=== PATIENT | female | born 1975 | race Caucasian/White ===

== ENCOUNTER 2020-08-15 08:05 | Outpatient (CLI) | payer OTHER, SELFPAY ==
--- NOTE | 2020-08-15 08:00 | ECG_ITS ---
Measurements Intervals Gillespie Rate: 62 P: 31 MS: 162 QRS: -18 QRSD: 93 T: 44 QT: 388 QTc: 394 Interpretive Statements SINUS RHYTHM VOLTAGE CRITERIA FOR LVH POOR R WAVE PROGRESSION, ANTERIOR LEADS BASELINE ARTIFACT- I, II, III, AVR, AVL, AVF BORDERLINE ECG Electronically Signed On 08-15-2020 8:49:04 CDT by Srinath Richards D.O.
[2020-08-15 08:39] LABS: Hematocrit 33.8 % (37.0-47.0); Hemoglobin 9.7 g/dL (12.0-15.0)
== END 2020-08-15 08:06 | disposition home or self-care (01) ==
LOC: ANHSURGERY 08:07
PROVIDERS: PCP Family Medicine; Visit Provider Obstetrics & Gynecology
DX: Z01.818 Encounter for other preprocedural examination (principal); N92.0 Excessive and frequent menstruation with regular cycle; F17.200 Nicotine dependence, unspecified, uncomplicated
CPT/HCPCS: 36415; 85014; 85018; 93005

== ENCOUNTER → 2020-08-16 04:28 | Outpatient (CLI) | payer OTHER, SELFPAY ==
[2020-08-16 19:03] LABS: SARS-CoV-2 RNA PCR Negative
== END ==
PROVIDERS: PCP Family Medicine; Visit Provider Obstetrics & Gynecology
DX: Z01.812 Encounter for preprocedural laboratory examination (principal); Z20.822 Contact with and (suspected) exposure to COVID-19
CPT/HCPCS: C9803; U0003; U0005

== ENCOUNTER 2020-08-19 01:22 | Day surgery (SDC) | payer OTHER, SELFPAY ==
[2020-08-05 11:53] VITALS: BMI 39.3
--- NOTE | 2020-08-16 09:41 | PM.IMHP ---
H&P: HPI History of Present Illness Date/Time: 08/16/20 09:41 for has a 45-year-old 4 para 4 who is admitted for hysteroscopy dilatation curettage and endometrial ablation. She complains of heavy bleeding. This has been going on for years. She opts for the ablation. Risks and benefits reviewed for Chief Complaint: heavy menstrual bleeding refractory to medical therapy Review of Systems Review of Systems: All systems reviewed & are unremarkable except as noted in HPI and below PMFSH Family History Family History Father Hypertension Family history of diabetes mellitus in first degree relative Social History Social History Smoking packs per day: 1 Smoking cigarettes per day: 20.0 Years smoked: 20 Smoking pack-years: 20.00 Smoking status: Current every day smoker Tobacco type: e-cigarettes/vaping Second hand tobacco smoke exposure: Yes Smoking end date: 05/13/11 Additional smoking assessment comments: SMOKED CIGARETTES 20 YEARS, NOW VAPING X 2 YEARS Alcohol intake: current Substance use: current Substance use type: marijuana Other substance usage details: 1/WEEK Spiritual care concerns: No Meds Home Medications and Allergies Home Medications Medication Instructions Recorded Confirmed Type citalopram [Celexa] 20 mg PO DAILY 08/05/20 08/05/20 History omeprazole [Prilosec] 20 mg PO DAILY 08/05/20 08/05/20 History Allergies Allergy/AdvReac Type Severity Reaction Status Date / Time No Known Allergies Allergy Unknown Unverified 08/05/20 11:52 Exam Const: General: no acute distress Eyes: General: appearance normal, both eyes and all related structures Neck: Neck: supple and no JVD Thyroid: thyroid normal Resp: Effort & Inspection: normal respiratory effort Auscultation: clear to auscultation bilaterally Cardio: Rate: regular rate Rhythm: regular rhythm GI: Inspection: non-distended GI Palp: Yes Soft to palpation, No Tenderness to palpation present (GI) and No Guarding due to palpation present (GI) Auscultation: normal bowel sounds : General: Yes bladder normal to palpation External Female Exam: normal external appearance Speculum Exam - Vagina: normal vaginal discharge and No vaginal bleeding Speculum Exam - Cervix: nontender Bimanual exam- vagina & uterus: bladder normal to palpation and No Cervical tenderness present OB/external & speculum: No vaginal bleeding Skin: General skin exam: no rashes or lesions noted Extrem: General: normal to inspection and no edema Psych: Mental Status: mental status grossly normal Affect: normal affect Assessment and Plan Additional Plan impression: Bleeding refractory to medical therapy Plan: Hysteroscopy / dilatation curettage/ endometrial ablation
--- NOTE | 2020-08-19 06:46 | WPDHPUPDATE1 ---
History and Physical Update Update Date/Time: 08/19/20 06:46 History and Physical has been reviewed, including an updated exam of the patient. There are NO changes in the patient's condition. Risks, benefits, and alternatives have been discussed and questions answered. Patient agrees to proceed with procedure.
[2020-08-19 12:40] VITALS: BP 152/78; PULSE 70; RESP 20; TEMP 36.6; O2SAT 100
--- NOTE | 2020-08-19 12:59 | WPDANESEPPF ---
Anes - Initial Pre Proc Eval Procedure: Operation Date: 08/19/20 14:30 Proposed Procedures p Hysteroscopy Dilation and Curettage With Luanne - Oseas Low MD Date/Time: 08/19/20 12:59 Surgeon: Oseas Low MD Pre Op Diagnosis: Heavy Bleeding Patient Data Age: 45 Gender: F Height: 5 ft 2 in Weight: 97.5 kg Allergies Allergy/AdvReac Type Severity Reaction Status Date / Time No Known Allergies Allergy Unknown Unverified 08/05/20 11:52 Home Medications Medication Instructions Recorded Confirmed Type citalopram [Celexa] 20 mg PO DAILY 08/05/20 08/05/20 History omeprazole [Prilosec] 20 mg PO DAILY 08/05/20 08/05/20 History hydrocodone-acetaminophen 1 tablet PO Q6H PRN #14 tablet 08/19/20 Rx Patient hx anesthesia problems: none Family hx anesthesia problems: none PMFSH Past Medical History Medical History (Updated 08/19/20 @ 12:59 by Oseas Borjas MD) Obesity Family History Family History Father Hypertension Family history of diabetes mellitus in first degree relative Social History Social History Smoking packs per day: 1 Smoking cigarettes per day: 20.0 Years smoked: 20 Smoking pack-years: 20.00 Smoking status: Current every day smoker Tobacco type: e-cigarettes/vaping Second hand tobacco smoke exposure: Yes Smoking end date: 05/13/11 Additional smoking assessment comments: SMOKED CIGARETTES 20 YEARS, NOW VAPING X 2 YEARS Alcohol intake: current Alcohol use details: 6 DRINKS/MONTH Substance use: current Substance use type: marijuana Other substance usage details: 1/WEEK Living arrangements: with family Spiritual care concerns: No Anes - Eval Final PreProcedure Day of Procedure 08/19/20 12:59 Patient weight: obese Heart: regular rate and rhythm Lungs: clear to auscultation Airway: Mallampati scale class II Last oral intake: >/= 8 hours ASA classification: II Emergent: no Anesthetic plan: proceed Anesthesia type and monitoring: general GIVS and standard monitoring Informed Consent: The patient's anesthetic plan and its attendant risks and benefits were discussed with the patient/family/POA. Questions were solicited and answers provided to the satisfaction of the patient/family/POA.
[2020-08-19] MEDS: ACETAMINOPHEN 500 MG TABLET 1000 MG PO (13:07)
[2020-08-19] MEDS: LACTATED RINGERS 1,000 ML 30 ML IV CONT (13:15)
--- NOTE | 2020-08-19 14:27 | PM.PROC ---
Procedure Note - Detailed Date of procedure: 08/19/20 Pre-op diagnosis: Heavy Bleeding Surgeon: Oseas Low MD Postop diagnosis: Heavy bleeding Procedure: Hysteroscopy/ dilatation curettage/ endometrial ablation Anesthesia: IV sedation and local Complications: None Findings: Uterus sounded to9.5cm. Thick endometrial tissue. Description procedure: The patient was prepped and draped in the normal sterile fashion placed in the dorsal lithotomy position. Under excellent IV sedation a weighted speculum placed in posterior fornix of vagina. Anterior lip of the cervix grasped with a single-tooth tenaculum and 2.5cc of 1% xylocaine anesthesia placed at 2:48 a.m. and 10:00 a.m. respectively the cervix. Uterus sounded 9 a 0.5cm. Serial dilatation with dilated was undertaken. The 5mm visualizing hysteroscope was inserted using normal saline as visualizing medium. Thick endometrial tissue could be seen in each fallopian tube os but no abnormality seen. Uterus was scraped over the entire 360? until a good grating sound was heard. When no further tissue could be removed the instruments removed. The Sofiya ablated instrument was placed in the uterus and burned for 120seconds. The instrument removed. Blood loss estimated at5cc. All sponge, needle, instrument counts were correct. There were no immediate complications
[2020-08-19 14:28] VITALS: BP 140/69; PULSE 80; RESP 15; O2SAT 99
[2020-08-19 14:50] VITALS: BP 157/79; PULSE 59; RESP 16
[2020-08-19 15:20] VITALS: BP 170/90; PULSE 50; RESP 16
== END 2020-08-19 15:22 | disposition home or self-care (01) ==
PROVIDERS: PCP Family Medicine; Visit Provider Obstetrics & Gynecology
PROC: 0U5B8ZZ Destruction of Endometrium, Via Natural or Artificial Opening Endoscopic (ICD-10-PCS; CPT 58563; principal; 2020-08-19 14:30)
DX: N92.4 Excessive bleeding in the premenopausal period (principal); N85.8 Other specified noninflammatory disorders of uterus; F12.90 Cannabis use, unspecified, uncomplicated; E66.9 Obesity, unspecified; Z68.38 Body mass index [BMI] 38.0-38.9, adult; F17.290 Nicotine dependence, other tobacco product, uncomplicated
CPT/HCPCS: 58563; 36415; 85014; 85018; 88305; 93005; A9270; C9803; J2250; J2704; J3010; J7030; J7120; U0003; U0005

== ENCOUNTER → 2020-11-15 11:32 | Outpatient (CLI) | payer OTHER, SELFPAY ==
--- NOTE | ~2020-11-15 | MM_ITS ---
EXAMINATION: MM screening [facility] w mariely HISTORY: Screening mammogram TECHNIQUE: Craniocaudal and mediolateral oblique 3-D tomosynthesis images were obtained and synthetic 2-D images were generated. CAD analysis was submitted and interpreted. COMPARISON: 01/10/2017 BREAST PARENCHYMAL COMPOSITION: The breasts are almost entirely fatty. FINDINGS: There is no evidence of suspicious mass, calcification, or architectural distortion to sugg est malignancy in either breast. There has been no suspicious interval change. IMPRESSION: 1. No mammographic evidence of malignancy. 2. Recommend routine screening mammography in one year. BI-RADS Category 1: Negative Reviewed, dictated and finalized at location A.
== END ==
PROVIDERS: Visit Provider Obstetrics & Gynecology
DX: Z12.31 Encounter for screening mammogram for malignant neoplasm of breast (principal)
CPT/HCPCS: 77063; 77067

== ENCOUNTER 2022-01-30 09:17 | Outpatient (CLI) | payer OTHER, SELFPAY ==
[2022-01-30 09:33] LABS: Hematocrit 42.1 % (37.0-47.0); Mean Corpuscular HGB Conc 33.3 g/dl (32-36); Mean Corpuscular Volume 93.3 fl (80-100); Mean Platelet Volume 10.9 fl (7.4-10.4); Platelet Count Result 206 k/mm3 (150-375); Red Blood Count 4.51 M/mm3 (4.2-5.4); Red Cell Distribution Width 12.7 % (11.5-14.5); White Blood Count 5.7 K/mm3 (4.5-10.0)
[2022-01-30 09:33] LABS: Appearance Urine Clear (Clear); Bilirubin Urine Negative (Negative); Blood Urine Negative (Negative); Color Urine Yellow (Yellow); Glucose Urine UA Negative (Negative); Ketones Urine Negative (Negative); Leukocyte Esterase Ur Negative LEU/UL (NEGATIVE); Nitrate Urine Negative (Negative); Protein Urine Negative (Negative); Specific Grav Ur >= 1.030 (1.001-1.035); Urobilinogen Urine 0.2 mg/dL (<2.0); pH Urine 5.5 (5.0-9.0)
[2022-01-30 09:39] LABS: Bacteria Urine 2+ /hpf; Mucus Urine Few /lpf; Squamous Epithelial Cell Urine Moderate /hpf (Few)
[2022-01-30 09:51] LABS: Alanine Aminotransferase 14 U/L (6-35); Albumin Level 4.1 g/dL (3.5-5.1); Alkaline Phosphatase 45 U/L (38-126); Anion Gap 9 mmol/L (8-16); Aspartate Amino Transferase 22 U/L (14-36); Bilirubin,Total 0.9 mg/dL (0.2-1.3); Blood Urea Nitrogen 10 mg/dL (7-17); Carbon Dioxide 23 mmol/L (22-30); Chloride 107 mmol/L (98-107); Cholesterol 149 mg/dL (0-200); Estimated Glomerular Filt Rate > 60; Glucose 98 mg/dL (65-110); HDL Direct 42 mg/dL; Potassium 3.9 mmol/L (3.4-5.0); Sodium 139 mmol/L (137-145); Triglycerides 70 mg/dL (<150)
[2022-01-30 09:53] LABS: Add Urine Microscopic? YES
[2022-01-30 10:02] LABS: LDL Cholesterol Direct 87 mg/dL
== END 2022-01-30 09:18 | disposition home or self-care (01) ==
LOC: ANHLAB 09:19
PROVIDERS: PCP Family Medicine; Visit Provider Family Medicine
DX: E78.5 Hyperlipidemia, unspecified (principal); I10 Essential (primary) hypertension; Z00.00 Encounter for general adult medical examination without abnormal findings
CPT/HCPCS: 36415; 80053; 80061; 81001; 84443; 85027

== ENCOUNTER 2022-06-28 10:16 | Outpatient (CLI) | payer OTHER, SELFPAY ==
[2022-06-28 11:00] LABS: Alanine Aminotransferase 17 U/L (6-35); Albumin Level 3.6 g/dL (3.5-5.1); Alkaline Phosphatase 48 U/L (38-126); Anion Gap 6 mmol/L (8-16); Aspartate Amino Transferase 23 U/L (14-36); Bilirubin,Total 0.4 mg/dL (0.2-1.3); Blood Urea Nitrogen 8 mg/dL (7-17); Calcium 8.7 mg/dL (8.4-10.2); Carbon Dioxide 28 mmol/L (22-30); Chloride 106 mmol/L (98-107); Estimated Glomerular Filt Rate > 60; Glucose 82 mg/dL (65-110); Potassium 3.6 mmol/L (3.4-5.0); Sodium 140 mmol/L (137-145)
== END 2022-06-28 10:17 | disposition home or self-care (01) ==
PROVIDERS: PCP Family Medicine; Visit Provider Family Medicine
DX: I10 Essential (primary) hypertension (principal)
CPT/HCPCS: 36415; 80053

== ENCOUNTER 2023-02-20 14:49 | Outpatient (CLI) | payer OTHER, SELFPAY ==
[2023-02-20 15:19] LABS: Appearance Urine Clear (Clear); Bilirubin Urine Negative (Negative); Blood Urine Negative (Negative); Color Urine Yellow (Yellow); Glucose Urine UA Negative (Negative); Ketones Urine Negative (Negative); Leukocyte Esterase Ur Negative LEU/UL (NEGATIVE); Nitrate Urine Negative (Negative); Protein Urine Negative (Negative); Specific Grav Ur 1.023 (1.001-1.035); Urobilinogen Urine 0.2 mg/dL (<2.0)
[2023-02-20 15:20] LABS: Hematocrit 40.5 % (37.0-47.0); Hemoglobin 13.4 g/dL (12.0-15.0); Mean Corpuscular HGB Conc 33.1 g/dl (32-36); Mean Corpuscular Volume 93.8 fl (80-100); Mean Platelet Volume 10.6 fl (7.4-10.4); Platelet Count Result 204 k/mm3 (150-375); Red Blood Count 4.32 M/mm3 (4.2-5.4); Red Cell Distribution Width 12.8 % (11.5-14.5); White Blood Count 8.5 K/mm3 (4.5-10.0)
[2023-02-20 15:27] LABS: Add Urine Microscopic? NO
[2023-02-20 15:29] LABS: Alanine Aminotransferase 13 U/L (6-35); Albumin Level 3.9 g/dL (3.5-5.1); Alkaline Phosphatase 49 U/L (38-126); Anion Gap 8 mmol/L (8-16); Aspartate Amino Transferase 21 U/L (14-36); Bilirubin,Total 0.7 mg/dL (0.2-1.3); Blood Urea Nitrogen 11 mg/dL (7-17); Calcium 8.7 mg/dL (8.4-10.2); Carbon Dioxide 21 mmol/L (22-30); Chloride 106 mmol/L (98-107); Cholesterol 155 mg/dL (0-200); Estimated Glomerular Filt Rate > 60; Glucose 106 mg/dL (65-110); HDL Direct 55 mg/dL; Potassium 3.5 mmol/L (3.4-5.0); Sodium 135 mmol/L (137-145); Triglycerides 63 mg/dL (<150)
[2023-02-20 15:42] LABS: LDL Cholesterol Direct 82 mg/dL
== END 2023-02-20 14:50 | disposition home or self-care (01) ==
PROVIDERS: PCP Family Medicine; Visit Provider Family Medicine
DX: Z00.00 Encounter for general adult medical examination without abnormal findings (principal); E78.5 Hyperlipidemia, unspecified; I10 Essential (primary) hypertension
CPT/HCPCS: 36415; 80053; 80061; 81003; 84443; 85027

== ENCOUNTER 2023-09-18 10:39 | Outpatient (CLI) | payer OTHER, SELFPAY ==
[2023-09-18 11:36] LABS: Alanine Aminotransferase 13 U/L (6-35); Albumin Level 4.2 g/dL (3.5-5.1); Alkaline Phosphatase 48 U/L (38-126); Anion Gap 4 mmol/L (4-12); Aspartate Amino Transferase 21 U/L (14-36); Bilirubin,Total 0.6 mg/dL (0.2-1.3); Blood Urea Nitrogen 14 mg/dL (7-17); Calcium 9.3 mg/dL (8.4-10.2); Carbon Dioxide 27 mmol/L (22-30); Chloride 107 mmol/L (98-107); Estimated Glomerular Filt Rate > 60; Glucose 94 mg/dL (65-110); Potassium 3.9 mmol/L (3.4-5.0); Sodium 138 mmol/L (137-145)
== END 2023-09-18 10:40 | disposition home or self-care (01) ==
LOC: ANHLAB 10:41
PROVIDERS: PCP Family Medicine; Visit Provider Family Medicine
DX: I10 Essential (primary) hypertension (principal)
CPT/HCPCS: 36415; 80053

== ENCOUNTER 2024-04-30 13:32 | Outpatient (CLI) | payer OTHER, SELFPAY ==
--- NOTE | ~2024-04-30 | MM_ITS ---
EXAMINATION: MM screening [facility] BI w mariely HISTORY: Screening TECHNIQUE: Craniocaudal and mediolateral oblique 3-D tomosynthesis images were obtained and synthetic 2-D images were generated. CAD analysis was submitted and interpreted. COMPARISON: Comparison to multiple prior studies sequentially, with oldest reviewed study dated 01/10. BREAST PARENCHYMAL COMPOSITION: Not dense: There are scattered areas of fibroglandular density. FINDINGS: There is no evidence of suspicious mass, calcification, or architectural distortion to sugg est malignancy in either breast. There has been no suspicious interval change. IMPRESSION: 1. No mammographic evidence of malignancy. 2. Recommend routine screening mammography in one year. BI-RADS Category 1: Negative Reviewed, dictated and finalized at location B. 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
== END 2024-04-30 13:33 | disposition home or self-care (01) ==
LOC: MICIMG 13:33
PROVIDERS: PCP Family Medicine; Visit Provider Obstetrics & Gynecology
DX: Z12.31 Encounter for screening mammogram for malignant neoplasm of breast (principal)
CPT/HCPCS: 77063; 77067

== ENCOUNTER 2024-09-25 08:35 | Outpatient (CLI) | payer OTHER, SELFPAY ==
--- OUTSIDE RECORDS SUMMARY | 2024-09-25 08:43 | XMS_ITS | Clinical Summary ---
Author Organization [facility] Address [address] [place] [id number] Care Team Providers Care Outside Sales Executive Name Role Phone Asif Mohr MD Primary Care Provider Allergies No known active allergies Medications losartan (COZAAR) 25 mg tablet Take 1 tablet (25 mg total) by mouth daily Active Active Problems No known active problems Social History Tobacco Use Types Packs/Day Years Used Date Smoking Tobacco: Former Cigarettes Tobacco Cessation:Counseling Given: Not Answered Personal Safety Answer Date Recorded Getting School Help Needed Not on file 07/27 Comments Unknown Sex and Gender Information Value Date Recorded Sex Assigned at Not on file 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 Gender Identity Not on file Sexual Orientation Not on file Obstetrics History Last Filed Vital Signs Vital Sign Reading Time Taken Comments Blood Pressure - - Pulse - - Temperature - - Respiratory Rate - - Oxygen Saturation - - Inhaled Oxygen Concentration - - Weight 72.6 kg (160 lb) 12/17/2022 12:45 PM CDT Height 157.5 cm (5' 2 ) 12/17/2022 12:45 PM CDT Body Mass Index 29.26 12/17/2022 12:45 PM CDT Plan of Treatment Health Maintenance Due Date Last Done Comments Breast Cancer Screening-Mammogram 1975 Cervical Cancer Screening 1976 Colon Cancer Screening-Colonoscopy 1976 Depression Screening 1976 Hepatitis C Screening 1976 DTaP/Tdap/Td Vaccine (1 - Tdap) 1987 Hepatitis B Screening 1994 Regular Well Visit/Exam 18-64 1994 Influenza Vaccine (#1) 2024 Pneumococcal vaccine <65 Aged Out No longer eligible based on patient's age to complete this topic Insurance [facility] Care Teams Outside Sales Executive Relationship Specialty Start Date End Date Asif Mohr MD [address] [address] PCP - General Family Medicine 12/17/22
--- OUTSIDE RECORDS SUMMARY | 2024-09-25 08:43 | XMS_ITS | Clinical Summary ---
Author Organization [facility] Care Team Providers Care Pin Sorter And Bagger Name Role Phone Unavailable Primary Care Provider Unavailabl e Social History Tobacco Use Types Packs/Day Years Used Date Smoking Tobacco: Never Assessed Comments Unknown Sex and Gender Information Value Date Recorded Sex Assigned at Not on file Legal Sex Female 7:16 PM CDT Gender Identity Not on file Sexual Orientation Not on file Plan of Treatment Health Maintenance Due Date Last Done Comments Hepatitis C Virus (HCV) Screening 1975 TdaP Immunization 1975 Hepatitis B Immunization (1 of 3 - 19+ 3-dose series) 1995 Pap Smear 1997 Cervical Cancer Screening (CCS) 2006 HPV/Cotest 2006 Discussion re Starting/Frequ ency of Mammograms 2016 Colonoscopy 2021 Colorectal Cancer Screening 2021 Influenza Immunization (#1) 2024 SARS-COV-2 Immunization ( season) 2024 Respiratory Syncytial Virus (RSV) Immunization (Adult) (1 - 1-dose 75+ series) 2051 Meningococcal Immunization (ACWY) Aged Out No longer eligible based on patient's age to complete this topic Pneumococcal Immunization Combined Aged Out No longer eligible based on patient's age to complete this topic Rotavirus Immunization Aged Out No lo nger eligible based on patient's age to complete this topic
--- OUTSIDE RECORDS SUMMARY | 2024-09-25 08:43 | XMS_ITS | Patient Health Record ---
Author Organization [address] [facility] Address [address] [place] [address] Care Team Providers Care Hand Worker Name Role Phone Asif Mohr MD Primary Care Provider Dane Piper Unavailable [phone] Allergies No Known Allergies Reason For Referral No Information Medications Medication SIG (Take, Route, Fr equency, Duration) Notes Start Date End Date Status Valium 10 MG 1 tablet Orally once , prior to surgery for 1 days 02/17/2021 Not-Taking Fluconazole 150 MG 3 tablets all at onc e Orally once a week 02/27/2021 Active Social History Tobacco Use: Social History Observation Description Date Details (start date - stop date) Former Smoker NA - NA Tobacco Use/Smoking Question Answer Notes Are you a former smoker How long has it been since you last smoked? 5-10 years Plan Of Treatment No Information Insurance Providers Payer Name Payer Address Payer Phone Subscriber Number Group Number Insured Name Patient Relationship to Insured Coverage Start Date Coverage End Date [facility] [address] [address] [place] [address] [id number] Smaantha Warren Self - patient is the insured Medical (General) History Surgical History Surgery Date(Month/Year)
--- OUTSIDE RECORDS SUMMARY | 2024-09-25 08:43 | XMS_ITS | Referral Summary ---
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 Gender Identity Not on file Sexual Orientation Not on file Last Filed Vital Signs Vital Sign Reading Time Taken Comments Blood Pressure - - Pulse - - Temperature - - Respiratory Rate - - Oxygen Saturation - - Inhaled Oxygen Concentration - - Weight 72.6 kg (160 lb) 12/17/2022 12:45 PM CDT Height 157.5 cm (5' 2 ) 12/17/2022 12:45 PM CDT Body Mass Index 29.26 12/17/2022 12:45 PM CDT Plan of Treatment Not on file Insurance [facility] CHOICE PLUS CHOICE PLUS Care Teams Mobile Therapist Relationship Specialty Start Date End Date Asif Mohr MD [address] [place] [address] PCP - General Family Medicine 12/17/22
--- OUTSIDE RECORDS SUMMARY | 2024-09-25 08:43 | XMS_ITS | Clinical Summary ---
Author Organization [facility] Address [address] [place] [address] Care Team Providers Care Sanitation Lead Name Role Phone Asif Mohr MD Primary Care Provider [phone] [facility],non-owned Affiliates and Associated Physician Practices is amultiple site organization consisting of ambulatory clinics and hospital sitesin [place], [place], [place] and [place]. This disclosure is being madepursuant to the Care Everywhere program and may not contain all information available regarding this patient. Last updated 18.[facility] Allergies No known active allergies Medications * Be aware that medications may not be up to date on this document. Alwaysverify current medications with the patient. Citalopram Hydrobromide (CITALOPRAM PO) Acti ve benzonatate (TESSALON) 200 MG capsule Take 1 capsule by mouth 3 times daily as needed for Cough 30 capsule 7 Active Family History Medical History Relation Name Comments Asthma Neg Hx Autoimmune Disease Neg Hx Bipolar Disorder Neg Hx Cancer - Breast Neg Hx Cancer - Colon Neg Hx Cancer - Other Neg Hx Cancer - Ovarian Neg Hx Cancer - Pancreatic Neg Hx Cancer - Prostate Neg Hx Depression Neg Hx Eczema Neg Hx Hypertension Neg Hx Migraine Neg Hx Osteoporosis Neg Hx Seizures Neg Hx Sudd. 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 Gender Identity Not on file Sexual Orientation Not on file Last Filed Vital Signs Vital Sign Reading Time Taken Comments Blood Pressure 120/70 05/03/2017 11:58 AM COMMERCIAL LOAN ADMINISTRATOR Pulse 68 05/03/2017 11:58 AM COMMERCIAL LOAN ADMINISTRATOR Temperature 36.9 C (98.4 F) 05/03/2017 11:58 AM COMMERCIAL LOAN ADMINISTRATOR Respiratory Rate 20 05/03/2017 11:58 AM COMMERCIAL LOAN ADMINISTRATOR Oxygen Saturation 98% 05/03/2017 11:58 AM COMMERCIAL LOAN ADMINISTRATOR Inhaled Oxygen Concentration - - Weight 101.2 kg (223 lb) 05/03/2017 11:58 AM COMMERCIAL LOAN ADMINISTRATOR Height 154.9 cm (5' 1 ) 05/03/2017 11:58 AM COMMERCIAL LOAN ADMINISTRATOR Body Mass Index 42.14 05/03/2017 11:58 AM COMMERCIAL LOAN ADMINISTRATOR Plan of Treatment Health Maintenance Due Date Last Done Comments COLOGUARD (AGES 45-75) - COL ON CA SCREENING 1976 COLON MONITORING 1976 COLONOSCOPY - COLON CA SCREENING 1976 CT COLONOGRAPHY - COLON CA SCREENING 1976 Colorectal Cancer Screening 1976 FIT - COLON CA SCREENING 1976 FLEX SIG - COLON CA SCREENING 1976 LIPID TESTING 1976 MAMMOGRAM 1976 HIV SCREENING 1991 HEPATITIS C SCREENING 03/15/1994 DTAP/TDAP/TD VACCINES (1 - Tdap) 1995 HEPATITIS B VACCINE (1 of 3 - 19+ 3-dose series) 1995 PNEUMOCOCCAL VACCINE (1 of 2 - PCV) 1995 SCREENING FOR DIABETES 05/03/2017 COVID-19 VACCINE (1 - 2023-2 5 season) 2024 DEPRESSION SCREENING 05/13/2024 INFLUENZA VACCINE (Season Ended) 2025 ZOSTER VACCINE (1 of 2) 2026 HIB VACCINE Aged Out No longer eligi ble based on patient's age to complete this topic HPV VACCINE Aged Out No longer eligi ble based on patient's age to complete this topic MENINGOCOCCAL (Group B) VACC INE SHARED DECISION-MAKING Aged Out No longer eligibl e based on patient's age to complete this topic MENINGOCOCCAL GROUPS A/C/Y/W VACCINE Aged Out No longer eligible b ased on patient's age to complete this topic Insurance [facility] Care Teams Sanitation Lead Relationship Specialty Start Date End Date Asif Mohr MD [address] [place] [address] PCP - General Family Medicine 05/03/17
[2024-09-25 09:02] LABS: Hematocrit 43.1 % (37.0-47.0); Hemoglobin 13.9 g/dL (12.0-15.0); Mean Corpuscular HGB Conc 32.3 g/dl (32-36); Mean Corpuscular Hemoglobin 29.9 pg (26-34); Mean Corpuscular Volume 92.7 fl (80-100); Mean Platelet Volume 10.7 fl (7.4-10.4); Platelet Count Result 197 k/mm3 (150-375); Red Blood Count 4.65 M/mm3 (4.2-5.4); Red Cell Distribution Width 12.6 % (11.5-14.5); White Blood Count 5.4 K/mm3 (4.5-10.0)
[2024-09-25 09:03] LABS: Add Urine Microscopic? YES; Appearance Urine Cloudy (Clear); Bacteria Urine 1+ /hpf; Bilirubin Urine Negative (Negative); Blood Urine Negative (Negative); Color Urine Yellow (Yellow); Glucose Urine UA Negative (Negative); Ketones Urine Negative (Negative); Leukocyte Esterase Ur Negative LEU/UL (Negative); Nitrate Urine Negative (Negative); Non Pathogenic Casts 0-2; Protein Urine Negative (Negative); RBC Urine 0-2 /hpf (0-2); Specific Grav Ur 1.029 (1.001-1.035); Squamous Epithelial Cell Urine Moderate /hpf (Few); Urobilinogen Urine 0.2 mg/dL (<2.0); WBC Urine 0-5 /hpf (0-3)
[2024-09-25 09:11] LABS: Alanine Aminotransferase 14 U/L (6-35); Albumin Level 3.9 g/dL (3.5-5.1); Alkaline Phosphatase 44 U/L (38-126); Anion Gap 7 mmol/L (4-12); Aspartate Amino Transferase 22 U/L (14-36); Bilirubin,Total 0.6 mg/dL (0.2-1.3); Blood Urea Nitrogen 12 mg/dL (7-17); Calcium 8.9 mg/dL (8.4-10.2); Carbon Dioxide 25 mmol/L (22-30); Chloride 107 mmol/L (98-107); Cholesterol 147 mg/dL (0-200); Estimated Glomerular Filt Rate > 60; Glucose 89 mg/dL (65-110); HDL Direct 49 mg/dL; Potassium 3.9 mmol/L (3.4-5.0); Sodium 139 mmol/L (137-145); Triglycerides 46 mg/dL (<150)
[2024-09-25 09:21] LABS: LDL Cholesterol Direct 76 mg/dL
== END 2024-09-25 08:36 | disposition home or self-care (01) ==
LOC: ANHLAB 08:36
PROVIDERS: PCP Family Medicine; Visit Provider Family Medicine
DX: R53.83 Other fatigue (principal); I10 Essential (primary) hypertension; Z00.00 Encounter for general adult medical examination without abnormal findings; E78.5 Hyperlipidemia, unspecified
CPT/HCPCS: 36415; 80053; 80061; 81001; 84443; 85027

== ENCOUNTER 2025-04-27 08:33 | Outpatient (CLI) | payer OTHER, SELFPAY ==
--- NOTE | 2025-04-27 08:38 | EST_ITS ---
Patient Info Name: Samantha Warren Age: 50 years : 1975 Gender: Female Ht: 62 in Wt: 164 lbs BSA: 1.83 m2 HR: 63 bpm BP: 117 / 85 mmHg Exam Date: 04/27/2025 1:18 PM Patient Status: O Admit Date: 04/27/2025 Exam Type: CA stress test treadmill A treadmill exercise stress test was performed. Staff Attending Provider: Nicole Stratton MD Exercise Technologist: Lashell Briceno Exercise Physician: Srinath Richards DO Summary 1. 1. Negative Kirill exercise stress test for ischemic ST changes by ECG criteria. 2. 2. Good functional capacity, achieving 10 METs of workload. 3. 3. Appropriate HR response to exercise. 4. 4. Appropriate HR recovery at 1 minute post exercise. 5. 5. No imaging with stress testing. 6. 6. Patient informed of the above results. Protocol: Kirill Stress ECG Details Stage: 1 Duration (min): 3 min : 0 sec Speed (mph): --- Grade (%): --- HR (bpm): 116 SBP (mmHg): 149 DBP (mmHg): 71 METS: --- Stage: 2 Duration (min): 7 min : 0 sec Speed (mph): --- Grade (%): --- HR (bpm): 143 SBP (mmHg): 142 DBP (mmHg): 78 METS: --- Stage: 3 Duration (min): 11 min : 0 sec Speed (mph): --- Grade (%): --- HR (bpm): 156 SBP (mmHg): 142 DBP (mmHg): 78 METS: --- Rest HR: 63 bpm Peak HR: 156 bpm Rest Sys BP: 117 mmHg Peak Sys BP: 142 mmHg Max Pred HR: 171 bpm % Max Pred HR: 91 % Target HR: 145 bpm Max RPP: 22,152 bpm*mmHg Target HR Summary: Patient's target heart rate was achieved BP Response: Normal blood pressure response Termination Reason: Reached target heart rate or workload, Completed protocol Cardiac Symptoms: Shortness of breath Total Time: 9 min : 30 sec Rest Jackson BP: 85 mmHg Peak Jackson BP: 78 mmHg Resting ECG Normal sinus rhythm. Stress ECG No abnormal ST/T wave changes with exercise. Arrhythmias None. Report Signatures
--- OUTSIDE RECORDS SUMMARY | 2025-04-27 09:00 | XMS_ITS | Clinical Summary ---
Author Organization [facility] Address [address] [place] [address] Care Team Providers Care Processing Tech Name Role Phone Asif Mohr MD Primary Care Provider [phone] Source Comments [facility],non-owned Affiliates and Associated Physician Practices is amultiple site organization consisting of ambulatory clinics and hospital sitesin [place], [place], [place] and [place]. This disclosure is being madepursuant to the Care Everywhere program and may not contain all information available regarding this patient. Last updated 18.[facility] Allergies No known active allergies Medications * [...] on file Legal Sex Female 7:26 PM RN BURN Gender Identity Not on file Sexual Orientation Not on file Last Filed Vital Signs Vital Sign Reading Time Taken Comments Blood Pressure 120/70 05/03/2017 11:58 AM RN BURN Pulse 68 05/03/2017 11:58 AM RN BURN Temperature 36.9 C (98.4 F) 05/03/2017 11:58 AM RN BURN Respiratory Rate 20 05/03/2017 11:58 AM RN BURN Oxygen Saturation 98% 05/03/2017 11:58 AM RN BURN Inhaled Oxygen Concentration - - Weight 101.2 kg (223 lb) 05/03/2017 11:58 AM RN BURN Height 154.9 cm (5' 1) 05/03/2017 11:58 AM RN BURN Body Mass Index 42.14 05/03/2017 11:58 AM RN BURN Plan of Treatment Health Maintenance Due Date [...] of 3 - 19+ 3-dose series) 1995 SCREENING FOR DIABETES 05/03/2017 DEPRESSION SCREENING 05/13/2024 COVID-19 VACCINE (1 - 2024-2 6 season) 2025 INFLUENZA VACCINE (#1) 2025 ZOSTER VACCINE (1 of 2) 2026 [...] patient's age to complete this topic Insurance [facility] Care Teams Processing Tech Relationship Specialty Start Date End Date Asif Mohr MD [address] [place] [address] PCP - General Family Medicine 05/03/17
--- OUTSIDE RECORDS SUMMARY | 2025-04-27 09:00 | XMS_ITS | Patient Health Record ---
Author Organization [address] [facility] Address [address] [facility] [place] [address] Care Team Providers Care Lard Bleacher Name Role Phone Asif Mohr MD Primary Care Provider Dane Piper Unavailable [phone] Allergies No Known Allergies Reason For Referral No Information Medications Medication SIG (Take, Route, Frequency, Duration) Notes Start Date End Date Status Valium 10 MG Tablet 1 tablet Orally once , prior to surgery; Duration: 1 days 02/17/2021 Not-Taking/PRN Fluconazole 150 MG Tablet 3 tablets all at once Orally once a week 02/27/2021 Active Social History Tobacco Use: Social History Observation Description Date Details (start date - stop date) Former Smoker NA - NA Social History Tobacco Use: Social Info Question Answer Notes Tobacco Use/Smoking Are you a former smoker How long has it been since you last smoked? 5-10 years Additional Details Category Social Info Options Details Miscellaneous: Exercise: Moderate Occupation: Unemployed Living with: spouse Drugs/Alcohol: Do you smoke marijuana? Ad mits Alcohol use: Social alcohol u se Recreational drugs Marijuana Plan Of Treatment No Information Insurance Providers Payer Name Payer Address Payer Phone Subscriber Number Group Number Insured Name Patient Relationship to Insured Coverage Start Date Coverage End Date [facility] [address] [address] [place] [address] [phone] [id number] Samantha Warren Self - patient is the insured Medical (General) History Surgical History Surgery Date(Month/Year)
--- OUTSIDE RECORDS SUMMARY | 2025-04-27 09:00 | XMS_ITS | Clinical Summary ---
Author Organization [facility] Address [address] [place] [id number] Care Team Providers Care Health Professional Name Role Phone Asif Mohr MD Primary [...] on file Legal Sex Female 6:59 PM [employer] Gender Identity Not on file Sexual Orientation Not on file Last Filed Vital Signs Vital Sign Reading Time Taken Comments Blood Pressure - - Pulse - - Temperature - - Respiratory Rate - - Oxygen Saturation - - Inhaled Oxygen Concentration - - Weight 72.6 kg (160 lb) 12/17/2022 12:45 PM CDT Height 157.5 cm (5' 2) 12/17/2022 12:45 PM CDT Body Mass Index 29.26 12/17/2022 12:45 PM CDT Plan of Treatment Health Maintenance Due Date Last Done Comments Breast Cancer Screening-Mammogram 1976 Cervical Cancer Screening 1976 Colon Cancer Screening-Colonoscopy 1976 Depression Screening 1976 Hepatitis C Screening 1976 DTaP/Tdap/Td Vaccine (1 - Tdap) 1987 Hepatitis B Screening 1994 Regular Well Visit/Exam 18-64 1994 Influenza Vaccine (#1) 2025 Pneumococcal vaccine <65 Aged Out No longer eligible based on patient's age to complete this topic Insurance [facility] CHO[facility] PLUS [facility] PL[facility] Care Teams Health Professional Relationship Specialty Start Date End Date Asif Mohr MD [id number] [facility] [address] [place] [id number] PCP - General Family Medicine 12/17/22
--- OUTSIDE RECORDS SUMMARY | 2025-04-27 09:00 | XMS_ITS | Clinical Summary ---
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 Phone Unavailable Primary Care Provider [...] Cervical Cancer Screening (CCS) 2006 HPV/Cotest 2006 Cologuard 2021 Colonoscopy 2021 Colorectal Cancer Screening 2021 Immunochemical Fecal Occult Blood 2021 Influenza Immunization (#1) 2025 SARS-COV-2 Immunization ( season) 2025 Respiratory Syncytial Virus (RSV) Immunization (Adult) (1 - 1-dose 75+ series) 2051 Human Papillomavirus (HPV) Immunization Aged Out No longer eligible b ased on patient's age to complete this topic Meningococcal Immunization (ACWY) Aged Out No longer eligible based on patient's age to complete this topic Pneumococcal Immunization Combined Aged Out No longer eligible based on patient's age to complete this topic Rotavirus Immunization Aged Out No lo nger eligible based on patient's age to complete this topic
== END 2025-04-27 08:34 | disposition home or self-care (01) ==
PROVIDERS: PCP Family Medicine; Visit Provider Family Medicine
DX: R07.9 Chest pain, unspecified (principal)
CPT/HCPCS: 93017